=== PATIENT | female | born 1975 | race Caucasian/White ===

== ENCOUNTER 2020-07-29 06:53 | Emergency (ER) | payer OTHER, BC ==
[2020-07-29 07:34] VITALS: BP 110/71; PULSE 76; TEMP 97.8; BMI 28.2
[2020-07-29] MEDS ORDERED: KETOROLAC TROMETHAMINE 60 MG/2 ML VIAL IM ONE (07:42)
[2020-07-29] MEDS ORDERED: KETOROLAC TROMETHAMINE 30 MG/1 ML VIAL ONE (07:44)
== END 2020-07-29 09:16 | disposition home or self-care (01) ==
LOC: JER 06:53
PROC: 3E0233Z Introduction of Anti-inflammatory into Muscle, Percutaneous Approach (ICD-10-PCS; principal; 2020-07-29)
DX: M54.2 Cervicalgia (principal)
CPT/HCPCS: 72040-TC; 99284-25